=== PATIENT | male | born 2000 | race Caucasian/White ===

== ENCOUNTER → 2022-12-14 07:37 | Outpatient (CLI) | payer OTHER, SELFPAY ==
--- NOTE | 2022-12-14 | DI.RAD.S_ITS ---
PROCEDURE: [place] SHOULDER INJECTION MR/CT RT INDICATIONS: PAIN IN RIGHT SHOULDER COMPARISON: [facility], MR, MR SHOULDER RT W CON, 12/14/2022, 8:53. TECHNIQUE: The indications, alternatives, benefits, risks, and complications of the procedure were explained to the patient. Written informed consent was obtained and placed in the chart. The shoulder was examined fluoroscopically and a site for needle placement chosen for entry into the glenohumeral joint from an anterior approach. The skin was prepped and draped in a sterile fashion, and 1% lidocaine infiltrated from skin down to joint capsule. A spinal needle was inserted into the glenohumeral joint, and a small amount of iodinated contrast media injected to confirm intra-articular placement of the needle tip. This was followed by approximately 12 mL dilute solution of a gadolinium containing MR contrast agent. The needle was removed and a dressing was applied. The patient was given postprocedural instructions and sent to the MR suite for MR imaging. FINDINGS: A single fluoroscopic spot image demonstrates intra-articular location of injected iodinated contrast. IMPRESSION: Successful fluoroscopically guided administration of dilute Gadolinium solution into the shoulder joint for MR arthrogram. Dictated by: Luis Muñoz M.D. on 12/14/2022 at 14:03 Approved by: Luis Muñoz M.D. on 12/14/2022 at 14:04
--- NOTE | 2022-12-14 | DI.MRI.S_ITS ---
PROCEDURE: MR SHOULDER RT W CON INDICATIONS: PAIN IN RIGHT SHOULDER TECHNIQUE: After the administration of 12 mL of dilute intra-articular Gadolinium contrast, oblique coronal T1 and T2 spin echo with fat saturation, oblique sagittal T1 spin echo with and without fat saturation, oblique sagittal T2 fast spin echo with fat saturation, axial T1 spin echo with fat saturation through the shoulder. COMPARISON: [facility], , [place] SHOULDER INJECTION MR/CT RT, 12/14/2022, 9:36. FINDINGS: Image quality: Excellent. Rotator cuff: The supraspinatus, infraspinatus, and subscapularis tendons appear intact throughout. No rotator cuff muscle atrophy on sagittal images. Bones and bursae: No acute trabecular bone injury or fracture. No focal glenohumeral cartilage defect. Chronic traction cystic changes are seen at the posterosuperior humeral head. Minimal acromioclavicular joint osteoarthrosis. No significant subacromial/subdeltoid bursal fluid. No significant filling defect is seen within the glenohumeral joint. Capsule and soft tissues: There is nondisplaced tearing of the posterosuperior to superior labrum with uptake of intra-articular contrast material. The proximal biceps long head tendon is intact. Normal fat signal is seen in the rotator interval. Glenohumeral ligaments are intact IMPRESSION: Nondisplaced tearing of the posterosuperior to superior labrum with uptake of intra-articular contrast material. Approved by: Salvador Marcelino M.D. on 12/14/2022 at 11:39
== END ==
DX: S43.401A Unspecified sprain of right shoulder joint, initial encounter (principal); M25.511 Pain in right shoulder
CPT/HCPCS: 23350; 73222; 77002